=== PATIENT | female | born 1995 | race Caucasian/White ===

== ENCOUNTER 2025-04-17 13:30 | Outpatient (CLI) | payer MEDICAID, SELFPAY ==
[2025-04-17 14:02] VITALS: BP 128/80; PULSE 70; RESP 16; TEMP 36.4; O2SAT 98
[2025-04-17 14:03] VITALS: BP 128/80; PULSE 70
[2025-04-17 14:05] VITALS: BMI 24.9
--- NOTE | 2025-04-22 14:58 | OB.TRI.HP_ITS ---
HPI - General HPI Narrative ALEJANDRO GARVEY, is a 29 F who presents with decreased FM. Maternal Data Information REINA Calculator Estimated Delivery Date Method Current WG Current Estimate 06/01/25 Manual 34w 2d PFSH PFSH Home Medications Medication Instructions Recorded Last Taken Type pediatric multivitamin no.76 1 tab PO DAILY 04/17/25 U nknown History (Flintstones Complete chewable tablet) Allergy/AdvReac Type Severity Reaction Status Date / Time Penicillins Allergy Rash Verified 04/17/25 14:08 acetaminophen (From Vicodin) AdvReac Nausea Verified 04/17/25 14:08 buspirone AdvReac Nausea Verified 04/17/25 14:08 hydrocodone (From Vicodin) AdvReac Nausea Verified 04/17/25 14:08 morphine AdvReac Nausea Verified 04/17/25 14:08 prednisone AdvReac Other Verified 04/17/25 14:08 NST FHR Rate Baby A Baseline: 125 Variability:: Moderate Accelerations:: 15 x 15 Decelerations:: None Uterine Activity:: quiet Assessment & Plan (1) Decreased movement: QUALIFIERS: Trimester: third trimester Fetus number: single or unspecified fetus Qualified Code(s): O36.8130 - Decreased movements, third trimester, not applicable or unspecified PLAN: Plan Reactive NST
== END 2025-04-17 14:24 | disposition home or self-care (01) ==
LOC: WPOUT 13:40 → WP 13:43
PROVIDERS: Visit Provider Obstetrics & Gynecology
DX: O36.8130 Decreased fetal movements, third trimester, not applicable or unspecified (principal); Z3A.34 34 weeks gestation of pregnancy
CPT/HCPCS: 59025; 59050; 99221; G0378